=== PATIENT | male | born 1945 | race Two or more races ===

== ENCOUNTER 2019-02-04 06:24 | Day surgery (SDC) | payer OTHER ==
[~2019-02-04 06:24] MED LIST: ATORVASTATIN CA10 MG PO; FUROSEMIDE40 MG PO; LANTUS SOL100 UNIT/1 SUBCUTANEO; METOLAZONE2.5 MG PO; NEURONTIN300 MG PO; PLAVIX75 MG PO; TAMS0.4C PO; ZYLOPRIM100 M1 PO
== END 2019-02-04 13:00 | disposition home or self-care (01) ==
LOC: CIR.AMB 06:24
DX: S62.616A Displaced fracture of proximal phalanx of right little finger, initial encounter for closed fracture (principal)

== ENCOUNTER 2019-04-09 12:24 | Outpatient (CLI) | payer OTHER | END 2019-04-09 12:28 | disposition home or self-care (01) | LOC: LAB 12:24 | DX: R97.20 Elevated prostate specific antigen [PSA] (principal); B96.29 Other Escherichia coli [E. coli] as the cause of diseases classified elsewhere ==

== ENCOUNTER → 2019-04-18 06:00 | Outpatient (CLI) | payer OTHER ==
[~2019-04-18] VITALS: Ht 180.3 cm; Wt 107.0 kg
== END | disposition home or self-care (01) ==
LOC: LAB 06:00 → SURG 04-28 07:30 → EDSTATUS 04-28 07:30 → SURG 04-28 09:00
DX: N40.1 Benign prostatic hyperplasia with lower urinary tract symptoms (principal); R97.20 Elevated prostate specific antigen [PSA]; R33.8 Other retention of urine; Z01.810 Encounter for preprocedural cardiovascular examination; Z01.812 Encounter for preprocedural laboratory examination; Z01.811 Encounter for preprocedural respiratory examination

== ENCOUNTER 2019-04-25 16:42 | Outpatient (CLI) | payer OTHER | END 2019-04-25 17:39 | disposition home or self-care (01) | LOC: LAB 16:42 | DX: N30.00 Acute cystitis without hematuria (principal); B96.29 Other Escherichia coli [E. coli] as the cause of diseases classified elsewhere ==

== ENCOUNTER 2019-04-27 16:03 | Inpatient (IN) | payer OTHER ==
[~2019-04-27] VITALS: Ht 180.3 cm; Wt 107.0 kg
--- NOTE | 2019-04-27 16:38 | NUR ---
PACIENTE ALERTA Y ORIENTADO X3. REFIERE VENIR POR INFECCION DE ORINA REFLEJADO EN CULTIVO DE ORINA. REFIERE DR. PENA SANDY LO ENVIO A MEGHA DE EMERGENCIAS PARA QUE LE ADMINISTREN ANTIBIOTICO POR VENA. SE NOTIFICA A DR. LINDQUIST.
== END 2019-05-02 12:57 | disposition home or self-care (01) | DRG 713 ==
LOC: ER 16:03 → SURG 17:01 → SURH 04-29 10:39
PROVIDERS: ADMIT Urology
PROC: 0VT08ZZ Resection of Prostate, Via Natural or Artificial Opening Endoscopic (ICD-10-PCS; principal; 2019-04-27)
DX: N40.1 Benign prostatic hyperplasia with lower urinary tract symptoms (principal); N18.6 End stage renal disease; I12.0 Hypertensive chronic kidney disease with stage 5 chronic kidney disease or end stage renal disease; N17.8 Other acute kidney failure; N30.00 Acute cystitis without hematuria; C61 Malignant neoplasm of prostate; R33.8 Other retention of urine; E11.22 Type 2 diabetes mellitus with diabetic chronic kidney disease; E11.65 Type 2 diabetes mellitus with hyperglycemia; Z99.2 Dependence on renal dialysis; Z79.4 Long term (current) use of insulin; Z19.1 Hormone sensitive malignancy status

== ENCOUNTER 2019-08-04 06:08 | Day surgery (SDC) | payer OTHER ==
[~2019-08-04 06:08] MED LIST changes: +COLCHICINE0.6 MG PO
== END 2019-08-04 12:25 | disposition home or self-care (01) ==
LOC: CIR.AMB 06:08 → ADM 08:00 → CIR.AMB 08:00
PROVIDERS: ATTEND Urology
DX: N32.0 Bladder-neck obstruction (principal)

== ENCOUNTER 2019-10-17 12:35 | Outpatient (CLI) | payer OTHER | END 2019-10-17 12:46 | disposition home or self-care (01) | LOC: TOM 12:35 | PROVIDERS: ATTEND Urology | DX: R31.1 Benign essential microscopic hematuria (principal); C61 Malignant neoplasm of prostate ==

== ENCOUNTER 2022-10-19 11:07 | Outpatient (CLI) | payer OTHER ==
[2022-10-19] MEDS ORDERED: DILTIAZEM ER60 MG PO (14:23)
== END 2022-10-19 12:35 | disposition home or self-care (01) ==
LOC: LAB 11:07
PROVIDERS: ATTEND Urology
DX: N30.00 Acute cystitis without hematuria (principal); R31.0 Gross hematuria

== ENCOUNTER 2022-10-20 05:46 | Day surgery (SDC) | payer OTHER ==
[~2022-10-20] VITALS: Ht 180.3 cm; Wt 109.8 kg
[~2022-10-20 05:46] MED LIST changes: +DILTIAZEM ER60 MG PO
== END 2022-10-20 17:05 | disposition home or self-care (01) ==
LOC: CIR.AMB 05:46
PROVIDERS: ATTEND Urology
DX: N32.0 Bladder-neck obstruction (principal); R33.9 Retention of urine, unspecified; Z20.822 Contact with and (suspected) exposure to COVID-19; I10 Essential (primary) hypertension; E78.5 Hyperlipidemia, unspecified